=== PATIENT | female | born 1975 | race African-American/Black ===

== ENCOUNTER 2019-08-24 17:17 | Emergency (ER) | payer OTHER ==
[~2019-08-24] VITALS: Ht 167.6 cm; Wt 68.0 kg
[2019-08-24 17:28] VITALS: BP 133/82
[2019-08-24] MEDS ORDERED: LIDOCAINE 1% HCL (LOCAL ANESTH.) INJ 20ML MDV ONE (19:23)
[2019-08-24] MEDS ORDERED: LIDOCAINE 1% HCL (LOCAL ANESTH.) INJ 20ML MDV IJ ONE (19:30)
[2019-08-24] MEDS ORDERED: NEOMYCIN-BACITRACIN-POLYM UNITDOSE PKG TOP OINT TOP ONE (20:00)
[2019-08-24] MEDS ORDERED: TETANUS-DIPTH-ACEL PERTUSSIS 0.5ML SYRG IM ONE (20:00)
== END 2019-08-24 20:12 | disposition home or self-care (01) ==
LOC: ER 17:17
DX: S61.211A Laceration without foreign body of left index finger without damage to nail, initial encounter (principal); W26.0XXA Contact with knife, initial encounter; Y93.89 Activity, other specified; Y92.009 Unspecified place in unspecified non-institutional (private) residence as the place of occurrence of the external cause; Y99.8 Other external cause status
CPT/HCPCS: 12001; 90471; 90715; 99283; J2001